=== PATIENT | female | born 1965 | race Caucasian/White ===

== ENCOUNTER 2023-11-15 17:56 | Inpatient (IN) | payer OTHER ==
[~2023-11-15] VITALS: Ht 167.6 cm; Wt 54.5 kg
[~2023-11-15 17:56] MED LIST: Amoxicillin500 MG PO; CLIN300 PO; CYCL10 PO; ERYT500 PO; HYDACE5 PO; HYDCHL12.5 PO; IBUP800 PO; PENVK250 PO; PENVK500 PO; Peridex480 ML SS; RXCLIN PO; RXERYT500 PO
[2023-11-15] MEDS ORDERED: Ondansetron HCl 2 MG / ML 2ML Vial IV ONE (19:05)
[2023-11-15] MEDS ORDERED: HYDROmorphone HCl/Pf 1MG SYR IV ONE (19:05)
[2023-11-15 19:18] LABS: BASOPHILS ABSOLUTE AUTO 0.03 K/mm3 (0.00-0.23); BASOPHILS PERCENT AUTO 0 % (0-2); EOSINOPHILS ABSOLUTE AUTO 0.13 K/mm3 (0.00-0.68); EOSINOPHILS PERCENT AUTO 1 % (0-6); Hematocrit 33.3 % (33.0-51.0); Hemoglobin 12.1 g/dL (11.5-16.0); IMMATURE GRAN ABSOLUTE AUTO 0.06 K/mm3 (0.00-0.10); IMMATURE GRAN PERCENT AUTO 1 % (0-1); LYMPHOCYTES ABSOLUTE AUTO 1.65 K/mm3 (0.84-5.20); LYMPHOCYTES PERCENT AUTO 15 % (21-46); MONOCYTES ABSOLUTE AUTO 0.71 K/mm3 (0.16-1.47); MONOCYTES PERCENT AUTO 7 % (4-13); Mean Corpuscular HGB 32.2 pg (26.0-34.0); Mean Corpuscular HGB Conc 36.3 g/dL (31.5-36.5); Mean Corpuscular Volume 89 fL (80-100); Mean Platelet Volume 10.1 fL (9.1-12.4); NEUTROPHILS ABSOLUTE AUTO 8.28 K/mm3 (1.96-9.15); NEUTROPHILS PERCENT AUTO 76 % (41-73); Platelet Count 284 K/mm3 (150-400); RDW Coefficient Variation 14.3 % (11.7-14.2); RDW Standard Deviation 45.4 fL (35.1-46.3); Red Blood Cell Count 3.76 M/mm3 (3.80-5.20); White Blood Cell Count 10.86 K/mm3 (4.00-11.30)
[2023-11-15 19:45] LABS: Albumin, Blood 3.4 g/dL (3.4-5.0); Albumin/Globulin Ratio 0.8 (0.8-1.8); Bilirubin, Total 1.1 mg/dL (0.1-1.0); Bun/Creatinine Ratio 25.4 (12.0-20.0); Calcium, Blood 8.7 mg/dL (8.5-10.1); Creatinine, Blood 0.63 mg/dL (0.40-1.00); Potassium, Blood 2.4 mmol/L (3.5-5.5); Total Protein, Blood 7.4 g/dL (6.4-8.2)
[2023-11-15] MEDS ORDERED: Acetaminophen 325 MG TABLET PO PRN (20:05)
[2023-11-15] MEDS ORDERED: Metoclopramide HCl 5MG / ML 2ML Vial IV PRN (20:10)
[2023-11-15] MEDS ORDERED: Ondansetron HCl 2 MG / ML 2ML Vial IV PRN (20:10)
[2023-11-15] MEDS ORDERED: OxyCODONE HCL 5 MG TAB PO PRN (20:10)
[2023-11-15] MEDS ORDERED: NS 1,000 ML IV SCH (20:10)
[2023-11-15] MEDS ORDERED: FentaNYL Citrate 50 MCG/ML 2 ML Injection IV PRN (20:10)
[2023-11-15] MEDS ORDERED: Potassium Chloride 40 MEQ in NS 250 ML IV STA (20:16)
[2023-11-15] MEDS ORDERED: Potassium Chloride 20 MEQ TabCR PO ONE (21:00)
[2023-11-15] MEDS ORDERED: NS 1,000 ML IV ONE (21:07)
[2023-11-15] MEDS ORDERED: NEURONTIN300 MG PO (22:18)
[2023-11-15] MEDS ORDERED: AMLODIPINE BESY10 MG PO (22:19)
[2023-11-15] MEDS ORDERED: METFORMIN HCL500 M2 PO (22:19)
[2023-11-15] MEDS ORDERED: STEGLATRO15 MG PO (22:20)
[2023-11-15] MEDS ORDERED: ATOR40TA PO (22:20)
[2023-11-15] MEDS ORDERED: IBUP600 PO (22:21)
[2023-11-15] MEDS ORDERED: LOSA50 PO (22:22)
[2023-11-15] MEDS ORDERED: ZOLOFT10013 PO (22:23)
[2023-11-15 22:28] VITALS: BP 138/91
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
[2023-11-16] VITALS (20 sets, daily range): BP systolic 106–154; BP diastolic 60–98
[2023-11-16 05:20] LABS: Bun/Creatinine Ratio 26.3 (12.0-20.0); Calcium, Blood 8.2 mg/dL (8.5-10.1); Creatinine, Blood 0.57 mg/dL (0.40-1.00)
--- NOTE | 2023-11-16 05:52 | NUR ---
SHIFT SUMMARY: FRANKLYN VIDALES" IS A&OX4. VSS, NO ACUTE EVENTS SINCE ADMISSION TO THE FLOOR. IV TO LEFT UPPER ARM PATENT. SHE REPORTS ADEQUATE PAIN RELIEF WITH MEDICATIONS PER MAR. SHE IS CURRENTLY BEDREST AND NPO IN PREPARATION FOR SURGERY ON HER LEFT HIP FRACTURE TODAY. REPLACING POTASSIUM. SHE IS CONTINENT OF BLADDER AND BOWEL. PT HAS NOT URINATED SINCE ADMISSION TO THE FLOOR, STATES SHE DOES NOT WISH TO USE THE BEDPAN YET. PRIOR TO BEING MADE NPO, SHE WAS TOLERATING PO INTAKE WELL. SHE IS LYING IN BED WITH THE CALL LIGHT IN REACH. WILL GIVE REPORT TO DAY SHIFT RN.
[2023-11-16] MEDS ORDERED: Potassium Chloride 40 MEQ in NS 250 ML IV ONE (06:15)
--- NOTE | 2023-11-16 12:00 | NUR ---
Spiritual Care Consult: ordered by Dr. Cho Pt. is resting in her bed but responds when I introduce myself. Pt. does not display unusual anxiety about her condition, but is unsettled by the wait for her surgery. Seek to normalize the pt. experience. Pt. verbalized gratitude for the spiritual care visit and welcomed this weld engineer to return after her surgery.
[2023-11-16] MEDS ORDERED: FentaNYL Citrate 50 MCG/ML 2 ML Injection ONE ×3 (15:37→17:53)
[2023-11-16] MEDS ORDERED: propofoL 20 ML IV ONE (15:37)
[2023-11-16] MEDS ORDERED: Ondansetron HCl 2 MG / ML 2ML Vial ONE (15:38)
[2023-11-16] MEDS ORDERED: Dexamethasone Sod Phos 10 MG/ML 1ML VIAL ONE (15:38)
[2023-11-16] MEDS ORDERED: Lidocaine HCl 2% 20 ML MDV ONE (15:38)
[2023-11-16] MEDS ORDERED: Dexmedetomidine HCL 200 MCG / 2 ML ONE (15:42)
--- NOTE | 2023-11-16 15:45 | NUR ---
PT TAKEN TO DAY SURGERY AT THIS TIME.
[2023-11-16] MEDS ORDERED: Tranexamic Acid 100 ML IV SCH (15:50)
[2023-11-16] MEDS ORDERED: Ropivacaine 0.5% HCl/Pf 123.125 MG,EPINEPHrine HCL 0.25 MG,Ketorolac Tromethamine 15 MG... INFIL SCH (15:50)
[2023-11-16] MEDS ORDERED: CeFAZolin Sodium 2,000 MG in NS 100 ML IV SCH (15:50)
[2023-11-16] MEDS ORDERED: Acetaminophen 500 MG Tab PO SCH (15:50)
[2023-11-16] MEDS ORDERED: Lactated Ringer's 1,000 ML IV SCH ×2 (15:50→16:00)
[2023-11-16] MEDS ORDERED: Midazolam HCl 1MG / ML 2ML Vial IV ONE (15:55)
[2023-11-16] MEDS ORDERED: CeFAZolin Sodium 2,000 MG VIAL ONE (16:04)
--- NOTE | 2023-11-16 16:42 | NUR ---
SHIFT SUMMARY PT IS IN OR AT THIS TIME. PAIN MANAGED WITH FENT AND OXY THIS SHIFT. PT USES CALL LIGHT APPROPRIATELY. REPORT GIVEN TO PAULIE FINN.
--- NOTE | 2023-11-16 19:29 | NUR ---
SHIFT SUMMARY S/P L JADEN HIP, EXOFIN CDI, XL SOFT LUMP UNDERNEATH INCISION/MARKED (DR BEDOYA NOTIFIED), VSS/RA/TELE NSR 70s, LISA PO, VOIDING/BEDPAN, BEDREST, PAIN MANAGED, IVF/ABX PER EMAR. REPORT TO CLYDE BENITEZ.
[2023-11-16] MEDS ORDERED: Insulin Human Lispro 100 Units/ML 3ML Syringe SC SCH ×2 (21:00)
--- NOTE | 2023-11-16 21:07 | NUR ---
CALL OUT TO DR MARY JANE BEDOYA REGARDING PT DEVELOPING RAISED AREAS DIRECTLY UNDER INC LINES,NO OUTWARD APPEARANCE OF BRUISING,NO EXTERNAL BLEEDING NOTED,PT REPOSITIONED EASILY FOR PLACEMENT OF TUCKER WRAP AND PRESSURE TO SITES. PT NOT COMPLAINING OF PAIN,VSS,SPOKE WITH ANS SERVICE.WAITING RETURN CALL.
--- NOTE | 2023-11-16 21:27 | NUR ---
LEFT HIP LUMP- SPOKE WITH SURGEON DR. BEDOYA NOTIFIED OF MEDIUM SIZED LUMP THAT HAS FORMED NEAR INCISION SITE OF LEFT HIP. NOTIFIED HER THAT LUMP APPEARED TO HAVE GOT BIGGER SINCE IT WAS FIRST ASSESSED BY DAYSHIFT RN AT SHIFT CHANGE BUT PT NOT COMPLAING OF ANY PAIN. AND THAT THERE IS NO DRAINAGE FROM SITE NOTIFED HER THAT THIS RN AND FIELD CROP FARMING SUPERVISOR PLACED TUCKER WRAP FOR COMRESSION. DR. BEDOYA WOULD LIKE TO LEAVE TUCKER WRAP IN PLACE, AND STATES TO PUT ICE NEAR AREA WELL. NO OTHER ORDERS AT THIS TIME.
[2023-11-17 04:33] VITALS: BP 107/63
--- NOTE | 2023-11-17 04:42 | NUR ---
SHIFT SUMMARY PT S/P LEFT HIP REPAIR. PT HAS RESTED MOST OF THE NIGHT. INTERMITTENT PAIN RELEIVED WITH MEDS PER EMAR. POST OP VITALS STABLE. PT TOLERATING PO INTAKE AND IS VOIDING. MEDIUM SIZE LUMP NOTED AT SHIFT CHANGE NEAR INCISION. TUCKER WRAP KEPT IN PLACE OVERNIGHT ORDERED. NO BRUSING OR EXTERNAL BLEEDING NEAR SITE. PT A/OX4, MAKES NEEDS KNOWN. BED IN LOWEST POSITION, CALL LIGHT WITHIN REACH.
[2023-11-17 05:00] LABS: Hematocrit 26.6 % (33.0-51.0); Hemoglobin 9.2 g/dL (11.5-16.0); Mean Corpuscular HGB 31.7 pg (26.0-34.0); Mean Corpuscular HGB Conc 34.6 g/dL (31.5-36.5); Mean Corpuscular Volume 92 fL (80-100); Mean Platelet Volume 10.6 fL (9.1-12.4); Platelet Count 236 K/mm3 (150-400); RDW Coefficient Variation 14.6 % (11.7-14.2); RDW Standard Deviation 49.2 fL (35.1-46.3); White Blood Cell Count 11.11 K/mm3 (4.00-11.30)
[2023-11-17 05:42] LABS: Bun/Creatinine Ratio 27.4 (12.0-20.0); Calcium, Blood 8.4 mg/dL (8.5-10.1); Creatinine, Blood 0.62 mg/dL (0.40-1.00); Magnesium, Blood 1.2 mg/dL (1.6-2.4); Potassium, Blood 3.5 mmol/L (3.5-5.5)
[2023-11-17 07:33] VITALS: BP 128/76
[2023-11-17] MEDS ORDERED: Magnesium Sulf 2 GM/Water 50ML 50 ML IV ONE (08:05)
[2023-11-17 10:47] LABS: Hematocrit 27.6 % (33.0-51.0); Hemoglobin 9.5 g/dL (11.5-16.0)
[2023-11-17] MEDS ORDERED: Empagliflozin 10 MG TAB PO SCH (14:00)
[2023-11-17 15:34] VITALS: BP 119/83
[2023-11-17] MEDS ORDERED: MetFORMIN HCl 500 mg PO SCH (17:00)
--- NOTE | 2023-11-17 17:45 | NUR ---
SHIFT SUMMARY POD1 L JADEN HIP, EXOFIN CDI, SOFT LUMP UNDERNEATH INCISION/MARKED, WRAPPED IN TUCKER WRAP, AND IMPROVED TODAY, VSS/RA/TELE NSR 70s, LISA PO, VOIDING, PAIN MANAGED, PHYSICAL THERAPY EVAL'D; AMB FWW/GB AND UP TO CHAIR. WILL REPORT TO ONCOMING NOC ELI.
[2023-11-17 19:42] VITALS: BP 124/78
[2023-11-18 02:42] VITALS: BP 113/75
[2023-11-18 05:01] LABS: Hematocrit 27.8 % (33.0-51.0); Hemoglobin 9.5 g/dL (11.5-16.0); Mean Corpuscular HGB 31.6 pg (26.0-34.0); Mean Corpuscular HGB Conc 34.2 g/dL (31.5-36.5); Mean Corpuscular Volume 92 fL (80-100); Mean Platelet Volume 11.1 fL (9.1-12.4); Platelet Count 257 K/mm3 (150-400); RDW Coefficient Variation 14.6 % (11.7-14.2); RDW Standard Deviation 48.5 fL (35.1-46.3); Red Blood Cell Count 3.01 M/mm3 (3.80-5.20); White Blood Cell Count 8.02 K/mm3 (4.00-11.30)
[2023-11-18 05:31] LABS: Bun/Creatinine Ratio 21.9 (12.0-20.0); Calcium, Blood 7.9 mg/dL (8.5-10.1); Creatinine, Blood 0.55 mg/dL (0.40-1.00); Potassium, Blood 3.4 mmol/L (3.5-5.5)
--- NOTE | 2023-11-18 05:42 | NUR ---
SHIFT SUMMARY POD 2 R JADEN HIP. NO ACUTE CHANGES OVERNIGHT. VSS. PT TOLERATING ORALS. VODIING IND. PT AMBULATES USING FWW c GB & 1 PERSON ASSIST TO STAND/PIVOT TO BSC. R HIP c HEMATOMA UNDER INCISION SITE, EXOFIN C/D/I c TUCKER WRAP IN PLACE. PT REPORTS PAIN TOLERABLE, MEDICATED PER EMAR. ANTICIPATED D/C TO SNF. CALL LIGHT IN REACH, BED IN LOWEST POSITION, WILL REPORT TO DAY RN.
[2023-11-18 07:24] VITALS: BP 148/86
[2023-11-18] MEDS ORDERED: Potassium Chloride 20 MEQ TabCR PO ONE (07:40)
[2023-11-18] MEDS ORDERED: HYDROcodone 5-APAP 325 TAB PO PRN (08:35)
[2023-11-18 14:57] VITALS: BP 114/67
[2023-11-18] MEDS ORDERED: Losartan Potassium 25 MG Tab PO SCH (15:00)
[2023-11-18] MEDS ORDERED: HYDR1TAB94 PO (15:35)
[2023-11-18] MEDS ORDERED: ASPI81CH PO (15:36)
[2023-11-18 15:57] VITALS: BP 129/77
--- NOTE | 2023-11-18 16:16 | NUR ---
discharging REVIEWED DC INSTRUCTIONS W/PT; VERBALIZED UNDERSTANDING AND SIGNED DC PAPERWORK. PLACED AQUACEL DRESSING TO INCISION AND PROVIDED AQUACEL DRESSING CHANGES. RETURNED PT'S HOME MEDS. VSS. PT DRESSED AND WAITING RIDE.
--- NOTE | 2023-11-18 16:42 | NUR ---
PT LEFT UNIT IN WC W/POSSESSIONS AND DC PAPERWORK IN HAND, ACCOMPANIED BY RIDE.
== END 2023-11-18 16:43 | disposition home health service (06) | DRG 522 ==
LOC: ER 17:56 → SURS 20:06
PROVIDERS: Emergency Medicine; Internal Medicine; Nurse Practitioner Acute Care; Orthopaedic Surgery Sports Medicine; ADMIT Internal Medicine
PROC: 0SRS01A Replacement of Left Hip Joint, Femoral Surface with Metal Synthetic Substitute, Uncemented, Open Approach (ICD-10-PCS; principal; 2023-11-16 16:00)
DX: S72.002A Fracture of unspecified part of neck of left femur, initial encounter for closed fracture (principal); L76.32 Postprocedural hematoma of skin and subcutaneous tissue following other procedure; W01.0XXA Fall on same level from slipping, tripping and stumbling without subsequent striking against object, initial encounter; F15.10 Other stimulant abuse, uncomplicated; E87.6 Hypokalemia; E78.5 Hyperlipidemia, unspecified; I10 Essential (primary) hypertension; Z66 Do not resuscitate; G89.29 Other chronic pain; E11.42 Type 2 diabetes mellitus with diabetic polyneuropathy; D64.9 Anemia, unspecified; Y83.8 Other surgical procedures as the cause of abnormal reaction of the patient, or of later complication, without mention of misadventure at the time of the procedure; Z79.84 Long term (current) use of oral hypoglycemic drugs; Z79.1 Long term (current) use of non-steroidal anti-inflammatories (NSAID); Z71.51 Drug abuse counseling and surveillance of drug abuser
CPT/HCPCS: 36415; 72170; 73502; 80048; 80053; 82435; 82947; 83735; 84132; 84295; 85014; 85018; 85025; 85027; 93005; 93010; 94760; 94762; 96374; 96375; 97110; 97116; 97162; 99284-25; A9270; C1776; J0171; J0690; J0735; J1100; J1170; J1885; J2250; J2405; J2704; J2795; J3010; J3475; J3480; J7030; J7050

== ENCOUNTER → 2024-01-05 | Outpatient (CLI) | payer OTHER ==
[~2024-01-05] MED LIST changes: +AMLODIPINE BESY10 MG PO; +ASPI81CH PO; +ATOR40TA PO; +HYDR1TAB94 PO; +IBUP600 PO; +LOSA50 PO; +METFORMIN HCL500 M2 PO; +NEURONTIN300 MG PO; +STEGLATRO15 MG PO; +ZOLOFT10013 PO
[2024-01-06 09:03] LABS: Bacterial Vaginosis PCR Negative (NEGATIVE); Candida glabrata-krusei, PCR NOT DETECTED (NOT DETECT)
[2024-01-06 10:15] LABS: Candida Group, PCR DETECTED (NOT DETECT)
== END ==
LOC: LAB SHORT 19:00 → LAB 19:00
DX: N89.8 Other specified noninflammatory disorders of vagina (principal)
CPT/HCPCS: 87481; 87661; 87801

== ENCOUNTER → 2024-06-06 | Outpatient (CLI) | payer OTHER ==
[2024-06-12 08:51] LABS: HPV HIGH RISK BY TMA Not Detected; HPV SOURCE Cervical
== END ==
LOC: LAB 10:00 → LAB SHORT 10:00
DX: Z12.4 Encounter for screening for malignant neoplasm of cervix (principal)
CPT/HCPCS: 87624; G0123